=== PATIENT | male | born 1990 | race Caucasian/White ===

== ENCOUNTER 2019-06-01 20:50 | Emergency (ER) | payer SELFPAY ==
[~2019-06-01] VITALS: Ht 172.7 cm; Wt 81.6 kg
[2019-06-01 20:52] VITALS: BP 146/73
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
[2019-06-01 21:21] VITALS: BP 146/73
--- NOTE | 2019-06-01 21:22 | NUR ---
PATIENT BIB [facility] POLICE DEPT. PATIENT EXAMINED BY DR. ASKEW. PATIENT MEDICALLY CLEARED AND RELEASED IN CUSTODY IN STABLE CONDITION. ORIGINAL PRE-BOOK FORM GIVEN TO OFFICER JOSH.
--- NOTE | 2019-06-01 21:22 | NUR ---
Patient discharged with v/s stable. Written and verbal after care instructions given and explained. Patient verbalized understanding. Police with in custody. All questions addressed prior to discharge. Advised to follow up with PMD.
== END 2019-06-01 21:21 ==
LOC: MED 20:50
DX: Z02.89 Encounter for other administrative examinations (principal); F10.10 Alcohol abuse, uncomplicated
CPT/HCPCS: 99283